=== PATIENT | female | born 1985 | race Caucasian/White ===

== ENCOUNTER 2025-07-04 14:00 | Outpatient (AMB) | payer OTHER, MEDICAID, SELFPAY ==
--- NOTE | 2025-07-04 13:59 | MHC.OFFVIS ---
Vital Signs 07/04/25 14:16 Height 5 ft 5 in Weight 127 lb BMI 21.1 BP 118/80 Blood Pressure Location Lt brachial Position Sitting Respiration 16 Pulse 76 Pulse Source Pulse Oximeter Pulse Oximetry (%) 99 Oxygen Delivery Method Room Air Intake Visit Reasons: Migraine Coremaker Required: No Allergies acetaminophen (From Vicodin) Allergy (Unknown, Verified 07/04/25 14:14) Unknown bupropion (From Wellbutrin) Allergy (Unknown, Verified 07/04/25 14:14) Unknown fluoxetine (From Prozac) Allergy (Unknown, Verified 07/04/25 14:14) Unknown hydrocodone (From Vicodin) Allergy (Unknown, Verified 07/04/25 14:14) Unknown hydromorphone (From Dilaudid) Allergy (Unknown, Verified 07/04/25 14:14) Unknown ketorolac (From Toradol) Allergy (Unknown, Verified 07/04/25 14:14) Unknown morphine Allergy (Unknown, Verified 07/04/25 14:14) Unknown sertraline (From Zoloft) Allergy (Unknown, Verified 07/04/25 14:14) Unknown HPI Comments Details: Shea is a 40-year-old female patient with a past medical history of anxiety, binge eating disorder, GERD, insomnia, and DIANA who was being treated at [facility] neurology for chronic migraine. She is here today to establish care at [facility] for her migraines. She has had good control of her migraines with Botox therapy. With Botox therapy, she typically will get a proximally 1-2 migraines per month and has overall excellent control until leading up to 1 week prior to her Botox injections when she has typically an increase in her migraines. She has been very happy with the results of the Botox therapy. Around times of more significant stress, she will sometimes have an increase in her headaches with the proximally 4 per month. She did try Ubrelvy recently for abortive therapy which unfortunately did not help to alleviate her headaches. Typical headache description: Headaches are often occipital and right retro-orbital accompanied by nausea, dizziness, light sensitivity, difficulty concentrating, sound sensitivity, and fatigue. At times, she will have some blurry vision and I will also experience some auras including wiggly lines in her vision. Headaches are pressure-like and stabbing and can be moderate to severe in intensity. Past medication trials include: Sumatriptan-no benefit Rizatriptan-no benefit Naratriptan-no benefit Nurtec-no benefit Ubrelvy-no benefit Topiramate-no benefit Botox-currently taking with significant improvement (last Botox 04/10/2025) [facility] Medical History Anxiety ADHD PTSD (post-traumatic stress disorder) Depression Migraine Surgical History History of cholecystectomy H/O gastric sleeve Hx of breast reduction, elective History of tonsillectomy and adenoidectomy History of dental surgery Family History Mother Hypertension Father No problems noted. Social History (Updated 07/04/25 @ 14:12 by Juan Germain CMA) Alcohol intake: never Patient Tobacco Use Status: Never used Tobacco Review of Systems Const All systems reviewed & are unremarkable except as noted in HPI and below Physical Exam Exam Exam: Bilateral trapezius tightness and bilateral occipital tenderness to touch Vital Signs: Last Vital Signs Pulse 76 07/04/25 14:16 Resp 16 07/04/25 14:16 BP 118/80 07/04/25 14:16 Pulse Ox 99 07/04/25 14:16 Oxygen Delivery Method Room Air 07/04/25 14:16 BMI result Body Mass Index 21.1 Const General: cooperative, healthy appearing, comfortable and no acute distress Nutritional Appearance: well nourished Orientation/consciousness: patient oriented x3 Limitations: no limitations HEENT Head: Yes normal to inspection and Yes normocephalic Eyes General: appearance normal, both eyes and all related structures Visual Jordan: normal visual jordan by confrontation Alignment and Position: alignment normal Periorbital: periorbital findings normal Eyelids: Yes eyelids normal Conjunctivae: conjunctivae normal Sclerae: sclerae normal Neuro General: patient oriented x3 and deep tendon reflexes 2+ bilaterally Cranial nerves: Yes CN's II-XII intact bilaterally and Yes Facial sensation intact/muscles of mastication intact Cognition (Neuro): normal cognition Gait exam (Neuro): Normal gait present Motor exam (neuro): 5/5 motor strength present throughout and no tremor noted Sensory Exam: double simultaneous stimulation for sensation normal Romberg Test: Negative Pupils: Normal pupillary reactivity/response: bilateral Psych Appearance: grossly normal Mental Status: mental status grossly normal Speech and movement: Normal speech and movement present and Clear speech present Affect: normal affect Attitude: cooperative Thought process: Normal thought process present Thought content: Normal thought content present Insight: Good insight present (Psych) Judgement: Good judgement present (Psych) Office Procedures Botulinum toxin Injection Details: Procedure: Botox therapy for Chronic Migraine Laterally: Bilateral Indications: Chronic Migraine Medications: Botox 155units How the med was supplied: Patient supplied Timeout performed before procedure, patient identified with full name and date of . Risks and benefits of procedure reviewed, as well as site verified, sonsent signed, allergies reviewed, and medication reconsilliatino reviewed/completed. Following universal hygiene protocol and PREEMPT protocol, Botox 200unit vial was reconstituted with 4cc normal saline for a final concentration of 5units/0.1cc. The areas of injection were cleansed with alcohol. A 30g 0.5 needle was used to administer the injections as below. Procerus: 5units midline Toddler Nanny: 5units left and 5units right Frontalis: 10units left and 10units right Temporalis: 20units left and 20units right Occipitalis:15units left and 15units right Cervical paraspinal 10units left and 10units right Trapezius 15units left and 15units right No noted paresthesias during injection 155units of Botox used and 45units wasted per PREEMPT protocol Complications: None Patient was observed for 15 minutes after the procedure and discharged home with instructions to apply ice to their head as needed. 49876 - Migraine Procedure code (CPT) selection complete Office Meds onabotulinumtoxinA 200 unit solution for injection Performing Provider: Gwen Floyd CNP Performing Location: [facility] Administered by: Gwen Floyd CNP on 07/04/25 14:42 Dose Route Admin Location Dispensed Lot Number Expiration Date [facility] Health Education Coordinator 155 unit IM 200 ea [id number] 09/25/27 Total Dispensed Waste 200 ea 0 % Assessment & Plan Assessment & Plan (1) Worsening headaches: Code(s): R51.9 - Headache, unspecified Category: Medical (2) Chronic migraine without aura without status migrainosus, not intractable: Code(s): G43.709 - Chronic migraine without aura, not intractable, without status migrainosus Category: Medical Plan Shea is a 40-year-old female patient with a past medical history of anxiety, binge eating disorder, GERD, insomnia, and DIANA who was being treated at [facility] neurology for chronic migraine. She is here today to establish care at [facility] for her migraines. She does note some recent stress and related increase in her migraines. She did try the Ubrelvy recently which unfortunately did not benefit her. She does note that the added stress has made her muscles feel exceptionally tight. She has not done well with cyclobenzaprine she would like a trial of tizanidine which can be taken before bed on an as-needed basis for myofascial tightening. Because headaches have in general been worsening over the course of the last few months, she is requesting to have an MRI completed. It has been many years since she has had an MRI and I think it is reasonable to pursue an MRI in the setting of worsening headaches. We did complete Botox therapy today without any complications -MRI of the brain without contrast -tizanidine 2 mg at bedtime (lower dose selected due to concurrent use of estrogen containing medication which can enhance a FX of the tizanidine) -Botox therapy performed today -return to the clinic in 3 months for follow-up visit and repeat Botox therapy Orders: Orders MR head/brain wo con 07/04/25 R51.9 - Headache, unspecified AMB Botulinum toxin Injection - Patient Supplied N/C 07/04/25 G43.709 - Chronic migraine without aura, not intractable, without status migrainosus, R51.9 - Headache, unspecified Medications: New tizanidine 2 mg PO BEDTIME 30 tabs 5RF muscle spasticity 30 days Coding Level of Care Code New Pt Level 4 (32416) Diagnoses Worsening headaches R51.9 Chronic migraine without aura without status migrainosus, not intractable G43.709 CPT Codes Botox Injection - Botox 3: 92260 - Migraine ([id number])
[2025-07-04 14:16] VITALS: BP 118/80; PULSE 76; RESP 16; O2SAT 99; BMI 21.1
== END 2025-07-04 14:42 | disposition home or self-care (01) ==
LOC: HO.HSM 14:01
PROVIDERS: Visit Provider Nurse Practitioner
DX: G43.709 Chronic migraine without aura, not intractable, without status migrainosus (principal); R51.9 Headache, unspecified
CPT/HCPCS: 64615

== ENCOUNTER → 2025-07-04 14:00 | Outpatient (BNVA) | payer OTHER, MEDICAID, SELFPAY | PROVIDERS: Visit Provider Nurse Practitioner | DX: G43.709 Chronic migraine without aura, not intractable, without status migrainosus (principal) | CPT/HCPCS: 64615; J0585 ==